=== PATIENT | female | born 1955 | race Caucasian/White ===

== ENCOUNTER → 2016-12-11 | Outpatient (CLI) | payer BC ==
[~2016-12-11] MED LIST: ASPI-321 OR; CALCIUM WITH D PO; CRAN1CAP6 OR; IBUP600T44 PO; PSEU120T21 OR; TRIA3AER NAE; VITA400C15 PO; ZYRUNK PO; [UNRECOGNIZED DRUG - CODE] PO
--- NOTE | 2016-12-11 16:39 | MAMMOGRAPHY REPORT ---
BILATERAL DIGITAL SCREENING MAMMOGRAM TOMOSYNTHESIS WITH CAD: 12/11/2016 CLINICAL HISTORY: Routine screening. Patient has no complaints. TECHNIQUE: Breast tomosynthesis in addition to standard 2D mammography was performed. Current study was also evaluated with a Computer Aided Detection (CAD) system. COMPARISON: Comparison is made to exams dated: 12/05/2015 mammogram, 10/14/2014 mammogram, 07/30/2013 ma mmogram, 07/29/2012 mammogram, 07/17/2011 mammogram, and 07/13/2010 mammogram - [facility] nter. BREAST COMPOSITION: The tissue of both breasts is heterogeneously dense, which may obscure small mas ses. FINDINGS: No suspicious masses, calcifications, or areas of architectural distortion are noted in ei ther breast. There has been no significant interval change compared to prior exams. IMPRESSION: ACR BI-RADS CATEGORY 1: NEGATIVE There is no mammographic evidence of malignancy. A 1 year screening mammogram is recommended. The pa tient will receive written notification of the results. Approximately 10% of breast cancers are not detected with mammography. A negative mammographic report should not delay biopsy if a clinically suggestive mass is present. Suzi Campo M.D. ah/:12/11/2016 15:59:12 Safety Intern: Zainab MENDOSA(Joleen)(M), [facility] letter sent: Normal 1/2 BI-RADS Code: ACR BI-RADS Category 1: Negative
== END | disposition home or self-care (01) ==
LOC: C.MAMM 15:40
PROVIDERS: ATTEND Obstetrics & Gynecology
DX: Z12.31 Encounter for screening mammogram for malignant neoplasm of breast (principal)

== ENCOUNTER → 2017-08-05 | Day surgery (SDC) | payer BC ==
[~2017-08-05] VITALS: Ht 160 cm; Wt 57.0 kg
[2017-08-05] VITALS (10 sets, daily range): BP systolic 91–141; BP diastolic 61–89; PULSE 68–86; TEMP 36.8; O2SAT 96–100; Ht 160 cm; Wt 57.0 kg
[~2017-08-05] MED LIST changes: +CYCL0.052 OP; +DOCO1CAP; +ESTCR; +LACTCAP26 PO; +LISI-729 PO; +MAGN500C PO; +METH1CHW PO; +MULT-1092; +OMEG1CHW; +PRLSR20 PO; +PROPOFOL IV EMULSION 10 MG/ML 20 ML VIAL IV ONE; +RIZA10TA19 PO
--- NOTE | 2017-08-05 07:24 | History & Physical Bridge Note ---
H&P Re-Evaluation Bridge Note: I have examined the patient, reviewed the History & Physical and in the interval since the performance of the History & Physical I have noted the following changes of clinical significance: No changes noted
--- NOTE | 2017-08-05 08:00 | Anesthesiology Progress Note ---
Anesthesia Post Op Note Date & Time Aug 05, 2017 at 08:00 Vital Signs Pain Intensity: 0 Vital Signs Past 12 Hours Date Time Temp Pulse Resp B/P (MAP) Pulse Ox O2 Delivery O2 Flow Rate FiO2 08/05/17 07:28 68 18 141/75 100 Room Air 6 08/05/17 07:00 36.8 71 16 131/83 (99) 99 Room Air Notes Mental Status: alert / awake / arousable, participated in evaluation Pt Amnestic to Procedure: Yes Nausea / Vomiting: adequately controlled Pain: adequately controlled Airway Patency, RR, SpO2: stable & adequate BP & HR: stable & adequate Hydration State: stable & adequate Anesthetic Complications: no major complications apparent
--- NOTE | 2017-08-05 08:03 | Discharge Instructions ---
Discharge Instructions Procedure Procedure Date: Aug 05, 2017. Reason for Visit: Severe Mitral Regurgitation W/Anes*Dr Christopher*. Discharge Discharge Date: Aug 05, 2017. Discharge Diagnosis: Mitral valve prolapse with mitral regurgitation Last Recorded Wt (Kilograms): 57 Anesthesia Post Anesthesia Instructions: If you have had General Anesthesia or IV Sedation: * Do not drive today. * Resume driving when surgeon permits. * Do not make important decisions or sign legal documents today. * Call surgeon for: 1. Temperature elevations greater than 101 degrees F. 2. Uncontrollable pain. 3. Excessive bleeding. 4. Persistent nausea and vomiting. 5. Medication intolerance (nausea, vomiting or rash). * For nausea and vomiting use only clear liquids such as: tea, soda, bouillon until nausea subsides, then gradually increase diet as tolerated. * If you have any concerns or questions, call your surgeon's office. If physician is unavailable and it is an emergency, call 911 or go to the nearest emergency room. Instructions Activity Recommendations: limitations as noted below Recommended Home Diet: low sodium Allergies: Coded Allergies: Nitrofurantoin (Verified Allergy, Intermediate, RAISED RASH, 10/16/09) Provider Instructions ACTIVITY RECOMMENDATIONS: Resume activities as tolerated with no limitations unless specified. _x_ No lifting over _10_ pounds for 24 hours. _x_ Do not engage in vigorous exercise, sexual activity, or sports for 24 hours. _x_ Do not drive or operate any motorized equipment for 24 hours. _x_ You may return to work/school tomorrow. _x_ Nothing to eat or drink until gag reflex returns. _x_ No HOT or WARM liquids for _8_ hours. _x_ Avoid "scratchy" foods such as potato chips or pretzels for 24 hours following procedure. SPECIAL CARE: If you experience coughing up or vomiting of blood, contact Dr. Christopher, Follow Up Follow-up with: Dr. Christopher as scheduled [facility] Recommendations: Call your doctor if: * Temperature above 101 degrees * Pain not relieved by pain medicine ordered * There is increased drainage or redness from any incision * You have any unanswered questions or concerns. Your Doctors Instructions noted above were prepared by provider Zac Christopher. Patient Signature Section: Patient Instructions Signature Page Laurie Giancarlo Patient (or Guardian) Signature/Date: I have read and understand the instructions given to me by my caregivers. Caregiver/RN/Doctor Signature/Date: The above-named patient and/or guardian has received patient instructions on this date. + Original Patient Signature Page (only) stays with chart. Please make copy for patient.
--- NOTE | 2017-08-05 08:05 | [facility] Post Operative Brief Note ---
Immediate Operative Summary Operative Date Aug 05, 2017. Pre-Operative Diagnosis mitral valve prolapse with mitral regurgitation Post-Operative Diagnosis mitral valve prolapse with mitral regurgitation Procedure(s) Performed transesophageal echo Surgeon Dr. 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
--- NOTE | 2017-08-05 10:07 | ECHOCARDIOGRAM REPORT ---
*NOTICE TO RECEIVING [employer]EN [employer]Y AGENCY This information is strictly Confidential and protected under [place] law. [place] law prohibits you from making any further disclosure of this information unless further disclosure is expressly permitted by the written consent of the person to whom it pertains or is authorized by law. A general authorization for the release of medical or other information is not sufficient for this purpose. Hospital accepts no responsibility if the information is made available to any other person, INCLUDING THE PATIENT. Interpretation Summary * Name: BOOGIE ROWELL Study Date: 08/05/2017 07:20 AM BP: 131/83 mmHg * Patient Location: CATH HR: 85 * : 1955 (M/d/yyyy) Gender: Female Height: 63 in * Age: 61 yrs Ethnicity: CA Weight: 125 lb * Performed By: Julia Malloy RDCS * * Reason For Study: SEVERE MITRAL REGURGITATION * BSA: 1.6 m2 * 500 Propofol * Start time 7:28AM * End time 7:56AM * The study was technically adequate. * Compared to prior study, changes are noted. * -- Conclusions -- * Ejection Fraction = 60-65%. * The mitral valve leaflets appear myxomatous. * Posterior mitral valve prolapse with evidence of P2 flail segment. * Prolapse of the anterior mitral leaflet. * There is moderate mitral annular calcification. * The mitral valve chordae are thickened and/or calcified. * There is severe mitral regurgitation. * There is trace tricuspid regurgitation. * Doppler findings do not suggest pulmonary hypertension. Procedure Details * A saline contrast injection was performed to assess for cardiac shunting. * The injection was performed through an intravenous line in the right arm. * The attending nurse who injected the saline contrast was KEAGAN CARDOZO. * A total of 20 cc of agitated saline was given. * A complete two-dimensional transthoracic echocardiogram was performed (2D, M-mode, Doppler and color flow Doppler). Left Ventricle * The left ventricle is normal in size. * There is normal left ventricular wall thickness. * Left ventricular systolic function is normal. * Ejection Fraction = 60-65%. * The left ventricular wall motion is normal. Right Ventricle * The right ventricle is normal size. * The right ventricular systolic function is normal as assessed by tricuspid annular plane systolic excursion (TAPSE) (normal >1.5 cm). Atria * The left atrium is moderately dilated. * No thrombus is detected in the left atrial appendage. * Right atrial size is normal. * The interatrial septum is intact with no evidence for an atrial septal defect. Mitral Valve * The mitral valve leaflets appear thickened, but open well. * There is moderate mitral annular calcification. * The mitral valve chordae are thickened and/or calcified. * The mitral valve leaflets appear myxomatous. * Prolapse of the anterior mitral leaflet. * Posterior mitral valve prolapse with evidence of P2 flail segment. * There is no mitral valve stenosis. * There is severe mitral regurgitation. Tricuspid Valve * The tricuspid valve is normal. * There is no tricuspid stenosis. * There is trace tricuspid regurgitation. * Doppler findings do not suggest pulmonary hypertension. Aortic Valve * The aortic valve is trileaflet. * Aortic stenosis is absent. * There is no significant aortic regurgitation. Pulmonic Valve * The pulmonic valve is not well seen, but is grossly normal. * There is no pulmonic valvular stenosis. * There is no significant pulmonary regurgitation. Great Vessels * No significant atherosclerotic plaque in visualized portions of the descending thoracic aorta. * The aortic root and proximal ascending aorta are normal sized. Pericardium/Pleural * There is no pericardial effusion. Great Vessels * Normal inferior vena cava diameter and respiratory variation suggests normal central venous pressure. Left Ventricular Diastolic Function * Diastolic function was not assessed.
--- NOTE | 2017-08-06 10:57 | TEE ---
*NOTICE TO RECEIVING REPUBL[employer] AGENCY This information is strictly Confidential and protected under [place] law. [place] law prohibits you from making any further disclosure of this information unless further disclosure is expressly permitted by the written consent of the person to whom it pertains or is authorized by law. A general authorization for the release of medical or other information is not sufficient for this purpose. Hospital accepts no responsibility if the information is made available to any other person, INCLUDING THE PATIENT. Interpretation Summary * Conclusions -- * Ejection Fraction = 60-65%. * The mitral valve leaflets appear myxomatous. * Posterior mitral valve prolapse with evidence of P2 flail segment. * Prolapse of the anterior mitral leaflet. * There is moderate mitral annular calcification. * The mitral valve chordae are thickened and/or calcified. * There is severe mitral regurgitation. * There is trace tricuspid regurgitation. * Doppler findings do not suggest pulmonary hypertension. Procedure Details * Left Ventricle The left ventricle is normal in size. There is normal left ventricular wall thickness. Left ventricular systolic function is normal. Ejection Fraction = 60-65%. The left ventricular wall motion is normal. * Right Ventricle The right ventricle is normal size. The right ventricular systolic function is normal as assessed by tricuspid annular plane systolic excursion (TAPSE) (normal >1.5 cm). * Atria The left atrium is moderately dilated. No thrombus is detected in the left atrial appendage. Right atrial size is normal. The interatrial septum is intact with no evidence for an atrial septal defect. * Mitral Valve The mitral valve leaflets appear thickened, but open well. There is moderate mitral annular calcification. The mitral valve chordae are thickened and/or calcified. The mitral valve leaflets appear myxomatous. Prolapse of the anterior mitral leaflet. Posterior mitral valve prolapse with evidence of P2 flail segment. There is no mitral valve stenosis. There is severe mitral regurgitation. * Tricuspid Valve The tricuspid valve is normal. There is no tricuspid stenosis. There is trace tricuspid regurgitation. Doppler findings do not suggest pulmonary hypertension. * Aortic Valve The aortic valve is trileaflet. Aortic stenosis is absent. There is no significant aortic regurgitation. * Pulmonic Valve The pulmonic valve is not well seen, but is grossly normal. There is no pulmonic valvular stenosis. There is no significant pulmonary regurgitation. * Great Vessels No significant atherosclerotic plaque in visualized portions of the descending thoracic aorta. The aortic root and proximal ascending aorta are normal sized. * Pericardium There is no pericardial effusion. *
== END | disposition home or self-care (01) ==
LOC: C.CATH 06:30
PROVIDERS: ATTEND Internal Medicine Cardiovascular Disease
DX: I34.1 Nonrheumatic mitral (valve) prolapse (principal); I34.0 Nonrheumatic mitral (valve) insufficiency; I10 Essential (primary) hypertension; Z79.82 Long term (current) use of aspirin; Z82.49 Family history of ischemic heart disease and other diseases of the circulatory system; Z83.6 Family history of other diseases of the respiratory system

== ENCOUNTER → 2017-08-11 | Day surgery (SDC) | payer BC ==
[~2017-08-11] VITALS: Ht 160 cm; Wt 57.0 kg
[~2017-08-11] MED LIST changes: +ACETAMINOPHEN 325 MG TAB PO PRN; +ALBUAER INH; +ATROPINE SULFATE 0.1 MG/ML 5ML SYR IV PRN; -CRAN1CAP6 OR; +FENTANYL CITRATE INJ 50 MCG/1 ML 2 ML VIAL ONE; +HEPARIN SOD (PORCINE) 1000 UNIT/ML 10 ML VIAL ONE; +MAGN400T6 PO; +MIDAZOLAM HCL 1 MG/ML 2ML VIAL ONE; +Magnesium PO; +NITROGLYCERIN/D5W 100MCG/ML 20ML SYR ONE; +NiCARDipine HCL INJ 2.5 MG/ML 10 ML AMP ONE; +ONDANSETRON INJ 2 MG/ML 2 ML VIAL IV PRN; -PROPOFOL IV EMULSION 10 MG/ML 20 ML VIAL IV ONE; -PSEU120T21 OR; +PSEU60TA80 PO; +SODIUM CHLORIDE 0.9% 1000ML 250 ML IV PRN; -VITA400C15 PO; -ZYRUNK PO; -[UNRECOGNIZED DRUG - CODE] PO
[2017-08-11 10:40] VITALS: BP 138/60; PULSE 68; TEMP 36.7; O2SAT 96; Ht 160 cm; Wt 57.0 kg
--- NOTE | 2017-08-11 11:10 | Pre Sedation Assessment ---
Pre Sedation Assessment General Date of Sedation: Aug 11, 2017. Vital Signs Past 12 Hours Date Time Temp Pulse Resp B/P (MAP) Pulse Ox O2 Delivery O2 Flow Rate FiO2 08/11/17 10:40 36.7 68 16 138/60 (86) 96 Review Cardiovascular: regular rate, rhythm, no edema, no gallop Lungs: chest non-tender, lungs clear Pre-Sedation Airway Assessment Smoking Status: Never Smoker Hx of Sleep Apnea: No Short Thick Neck: No Oral Cavity: WNL Mallampati Classification: Class II ASA Classification: Class II Procedure Planning Contraindications for Sedation: None Current Medications Reviewed: Yes Notes The planned sedation has been discussed with the patient. Informed Consent was obtained. I have identified the patient, determined the appropriateness of sedation and have assessed the patient immediately prior to the procedure. All medicine(s) and interventions are by my order.
--- NOTE | 2017-08-11 12:04 | Post Sedation Assessment ---
Post Sedation Assessment General Date of Sedation Aug 11, 2017. Vital Signs: Vital Signs Past 12 Hours Date Time Temp Pulse Resp B/P (MAP) Pulse Ox O2 Delivery O2 Flow Rate FiO2 08/11/17 10:40 36.7 68 16 138/60 (86) 96 Post Sedation Plan On clinical assessment, the patient appears to have tolerated the sedation without complications. Patient is recovering as anticipated. Patient will continue to be monitored by nursing and may be discharged when sedation discharge criteria are met per below protocol. Upon Completions of procedure and additional 15 minutes continue every 5 minute vital signs and the P.A.R. score; then discharge to a Phase I or Fast Track to Phase II per the following guidelines: * Discharge Patient to appropriate Phase II area if PAR is 8 or greater or return to pre- procedure baseline. The post - procedure orders will be as directed. * If PAR score is less than 8 or not return to pre-procedure baseline then patient will follow Phase I monitoring till PAR is reached for Phase II. The Phase I may be done in procedure room or may call to secure a Phase I area. * If naloxone or flumazenil are used for reversal, hold in Phase I for an additional 60 -120 minutes before discharge to Phase II. Please call the Sedation Physician to re-evaluate and complete post-note for discharge to Phase II area. Do NOT discharge from procedure sedation or Phase 1 until post- sedation evaluation note is complete by procedure /sedation MD Sedation Discharge Instructions to be given to the patient at discharge to home.
--- NOTE | 2017-08-11 12:18 | Cardiac Catheterization ---
Procedure Note Procedure Date Aug 11, 2017. Pre-Procedure Diagnosis Valvular Disease AUC Score 7 Post-Procedure Diagnosis Mild CAD, Normal Intracardiac Pressures Procedure(s) Performed Coronary Angiography, Left Heart Cath, Right Heart Cath Teletypesetter Dr. Christopher Management Advisor(s) Ana HILLIS Estimated Blood Loss 3cc Medication(s) Fentanyl, Heparin, Versed, Lidocaine 1% Summary of Findings Mild 10% mid LAD plaque otherwise normal coronary arteries. Normal left ventricular pressure. Normal right ventricular and pulmonary artery pressure. No evidence of intracardiac shunt. Hemodynamics Rest Ao: 113/67/89 Final Ao: 117/67/90 LV: 126/-10/11 RA: 1mmHg RV: 25/-8/2 PA: 23/5/13 PW: 5mmhg Recommendations management recommendations (Mitral valve repair) Specimens None Radiation Exposure (mGy) 381 Contrast (mls) 45 Anesthesia Moderate sedation. Start 1130. End 1200. 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 ACC Data Cardiac Status Clinical evaluation leading to the procedure CAD Presntation: No Sxs, no angina Anginal Classification: No symptoms Heart Failure: No Stress Echocardiogram: Yes - Negative Coronary Anatomy Dominant: Right Left Main (% Stenosis): Normal LAD (% Stenosis): Mid (10%) D1 (% Stenosis): Normal D2 (% Stenosis): Normal Circumflex (% Stenosis): Normal OM1 (% Stenosis): Normal OM2 (% Stenosis): Normal OM3 (% Stenosis): Normal L PL1 (% Stenosis): Normal RCA (% Stenosis): Normal R PDA (% Stenosis): Normal R PL1 (% Stenosis): Normal R PL2 (% Stenosis): Normal AM (% Stenosis): Normal Diagnostic Status: Elective Closure Device Percutaneous Entry Location: Radial (Brachial For right heart catheterization.) Closure Device: Radial Band Intraprocedure Events Significant Dissection: No Perforation: No
--- NOTE | 2017-08-11 12:21 | Discharge Instructions ---
Discharge Instructions Procedure Procedure Date: Aug 11, 2017. Reason for Visit: Mitral Valve Disorder *Candi Doing*. Discharge Discharge Date: Aug 11, 2017. Discharge Diagnosis: Status post cardiac catheterization. Mitral valve disease. Last Recorded Wt (Kilograms): 57 Anesthesia Post Anesthesia Instructions: If you have had General Anesthesia or IV Sedation: * Do not drive today. * Resume driving when surgeon permits. * Do not make important decisions or sign legal documents today. * Call surgeon for: 1. Temperature elevations greater than 101 degrees F. 2. Uncontrollable pain. 3. Excessive bleeding. 4. Persistent nausea and vomiting. 5. Medication intolerance (nausea, vomiting or rash). * For nausea and vomiting use only clear liquids such as: tea, soda, bouillon until nausea subsides, then gradually increase diet as tolerated. * If you have any concerns or questions, call your surgeon's office. If physician is unavailable and it is an emergency, call 911 or go to the nearest emergency room. Instructions Activity Recommendations: limitations as noted below Return to School/Work: with the following limitations Recommended Home Diet: resume previous diet Allergies: Coded Allergies: Nitrofurantoin (Verified Allergy, Intermediate, RAISED RASH, 10/16/09) Doxycycline (Unverified Allergy, Unknown, unk., 08/11/17) Uncoded Allergies: SULFA (Allergy, Unknown, unk, 08/11/17) Provider Instructions ACTIVITY RECOMMENDATIONS: Excess manipulation of the wrist should be avoided for the next 24-48 hours. * No lifting over 2 pounds (approximately a 1/2 gallon of milk) with the utilized arm for 24 hours. * No strenuous activity such as bowling or tennis for 3 days. * Keep the site of the procedure covered with a bandage for 24 hours. *You may shower the day after the procedure. Do not take a tub bath or submerge the puncture site in water for the next 3 days. *Do not operate any motorized equipment for 3 days. SPECIAL CARE INSTRUCTIONS: The site may be slightly bruised and sore following your procedure. Should any of the following occur, contact the DrMelisa who performed your procedure. 1. Redness/inflammation, swelling, chills, or fever, or colored drainage at procedure site within 3-7 days after your procedure. 2. Coldness, discoloration, ongoing numbness, severe pain, or swelling. Expect mild tingling of hand and tenderness at the puncture site for up to three days. If this persists beyond three days, or other symptoms develop, notify the Dr. who performed your procedure. BLEEDING: If the procedure site on your wrist begins to bleed, do not panic 1. Place 1 or 2 fingers firmly just slightly above the insertion site to stop the bleeding. You may be able to feel your pulse as you hold pressure. 2. Lift your finger after 5 minutes to see if the bleeding has stopped. 3. Once the bleeding has stopped, gently wipe the wrist area clean with a bandage. * If the bleeding from your wrist does not stop after 10 minutes, or if there is a large amount of bleeding or spurting, call 911 (do not drive yourself to the hospital). SKIN IRRITATION: * You may experience some redness and/or swelling in the area where radiation was administered. If any skin irritation occurs, please contact your family physician. FOLLOW UP VISIT: Keep any scheduled doctor appointments. Follow Up Follow-up with: Cardiothoracic surgery as scheduled. Dr. Christopher as scheduled. [facility] Recommendations: Call your doctor if: * Temperature above 101 degrees * Pain not relieved by pain medicine ordered * There is increased drainage or redness from any incision * You have any unanswered questions or concerns. Your Doctors Instructions noted above were prepared by provider Zac Christopher. Patient Signature Section: Patient Instructions Signature Page Laurie Mondragon Patient (or Guardian) Signature/Date: I have read and understand the instructions given to me by my caregivers. Caregiver/RN/Doctor Signature/Date: The above-named patient and/or guardian has received patient instructions on this date. + Original Patient Signature Page (only) stays with chart. Please make copy for patient.
[2017-08-11 14:45] VITALS: BP 124/70; PULSE 65; O2SAT 96
== END | disposition home or self-care (01) ==
LOC: C.CATH 10:06
PROVIDERS: ATTEND Internal Medicine Cardiovascular Disease
DX: I34.1 Nonrheumatic mitral (valve) prolapse (principal); I34.0 Nonrheumatic mitral (valve) insufficiency; Z82.49 Family history of ischemic heart disease and other diseases of the circulatory system; Z82.69 Family history of other diseases of the musculoskeletal system and connective tissue; Z83.6 Family history of other diseases of the respiratory system; Z80.8 Family history of malignant neoplasm of other organs or systems; Z87.891 Personal history of nicotine dependence; Z88.1 Allergy status to other antibiotic agents; Z88.2 Allergy status to sulfonamides; Z88.8 Allergy status to other drugs, medicaments and biological substances; Z79.899 Other long term (current) drug therapy; Z79.82 Long term (current) use of aspirin; I25.10 Atherosclerotic heart disease of native coronary artery without angina pectoris; I10 Essential (primary) hypertension

== ENCOUNTER → 2018-01-14 | Outpatient (CLI) | payer BC ==
[~2018-01-14] MED LIST changes: -ACETAMINOPHEN 325 MG TAB PO PRN; -ALBUAER INH; -ATROPINE SULFATE 0.1 MG/ML 5ML SYR IV PRN; -DOCO1CAP; -FENTANYL CITRATE INJ 50 MCG/1 ML 2 ML VIAL ONE; -HEPARIN SOD (PORCINE) 1000 UNIT/ML 10 ML VIAL ONE; -IBUP600T44 PO; -MAGN500C PO; -METH1CHW PO; -MIDAZOLAM HCL 1 MG/ML 2ML VIAL ONE; -Magnesium PO; -NITROGLYCERIN/D5W 100MCG/ML 20ML SYR ONE; -NiCARDipine HCL INJ 2.5 MG/ML 10 ML AMP ONE; -ONDANSETRON INJ 2 MG/ML 2 ML VIAL IV PRN; -SODIUM CHLORIDE 0.9% 1000ML 250 ML IV PRN
--- NOTE | 2018-01-15 08:10 | MAMMOGRAPHY REPORT ---
BILATERAL DIGITAL SCREENING MAMMOGRAM TOMOSYNTHESIS WITH CAD: 01/14/2018 CLINICAL HISTORY: Routine screening. Patient has no complaints. TECHNIQUE: The study was acquired using full field digital technology and interpreted from soft copy. 2d and tomosynthesis (3D imaging) was done in the CC and MLO projections. A C-view reconstruction wa s then done. Current study was also evaluated with a Computer Aided Detection (CAD) system. COMPARISON: Comparison is made to exams dated: 12/11/2016 mammogram, 12/05/2015 mammogram, 10/14/2014 ma mmogram, 08/03/2013 ultrasound, 08/03/2013 mammogram, and 07/30/2013 mammogram - [facility] ter. BREAST COMPOSITION: The tissue of both breasts is heterogeneously dense, which may obscure small mass es. FINDINGS: No suspicious masses, calcifications, or areas of architectural distortion are noted in either breast . There has been no significant interval change compared to prior exams. IMPRESSION: ACR BI-RADS CATEGORY 1: NEGATIVE There is no mammographic evidence of malignancy. A 1 year screening mammogram is recommended.( 019) The patient will receive written notification of the results. Approximately 10% of breast cancers are not detected with mammography. A negative mammographic report should not delay biopsy if a clinically suggestive mass is present. Suzi Campo M.D. /:01/14/2018 13:42:40 Body Worker: Cande Buckley, [facility] letter sent: Normal 1/2 BI-RADS Code: ACR BI-RADS Category 1: Negative
== END | disposition home or self-care (01) ==
LOC: C.MAMM 12:52
PROVIDERS: ATTEND Obstetrics & Gynecology
DX: Z12.31 Encounter for screening mammogram for malignant neoplasm of breast (principal)